=== PATIENT | female | born 1990 | race Caucasian/White ===

== ENCOUNTER → 2020-04-12 11:00 | Outpatient (BNVA) | payer MEDICAID, SELFPAY | PROVIDERS: Visit Provider Advanced Practice Midwife | DX: Z39.2 Encounter for routine postpartum follow-up (principal); F11.21 Opioid dependence, in remission | CPT/HCPCS: 99212 ==

== ENCOUNTER 2020-08-06 20:13 | Emergency (ER) | payer MEDICAID, SELFPAY ==
--- NOTE | ~2020-08-06 | XR_ITS ---
EXAMINATION: XR FOOT, LEFT CLINICAL INFORMATION: Trauma. Pain after hitting table. COMPARISON: None TECHNIQUE: AP, lateral, and oblique views of the left foot. FINDINGS: The bones and soft tissues are normal. No fracture. Alignment is anatomic. Joint spaces are maintained. XR/XR foot LT min 3V IMPRESSION: No acute fracture or dislocation.
[2020-08-06 21:20] VITALS: BP 109/63; PULSE 79; RESP 16; TEMP 36.7; O2SAT 96; BMI 27.4
--- NOTE | 2020-08-06 22:24 | ED_ITS ---
HPI - Extremity Injury (Lower) General Chief Complaint: Extremity Injury, Lower Stated Complaint: TOE INJ Time Seen by Provider: 08/06/20 21:12 Source: patient Mode of arrival: ambulatory Limitations: no limitations History of Present Illness HPI Narrative: Patient presents to ED for left foot pain. Patient states she hit her left foot on the table and since then has had pain on her last 3 toes. Patient denies any foot swelling, redness, numbness, weakness, tingling, or inability to walk. Patient denies falling to the ground or hitting head Related Data Home Medications Medication Instructions Recorded Confirmed vitamin with calcium 1 tab PO DAILY 04/12/20 04/12/20 no.72-iron 27 mg-folic acid 1 mg tablet Previous Rx's Medication Instructions Recorded PNV no.151-iron 27 mg-folic 800 1 cap PO DAILY 30 Days #30 cap 04/12/20 mcg-omega3 260 [id number] capsule naproxen 500 mg PO BID PRN #20 tab 08/06/20 Allergies Allergy/AdvReac Type Severity Reaction Status Date / Time hydrocodone [From VICODIN] Allergy Unknown ANAPHYLAXIS Verified 08/06/20 21:20 Vicodin Allergy Unknown anaphylaxis Uncoded 02/14/20 00:00 Review of Systems Review of Systems: Yes all other systems are reviewed and are negative Constitutional: Constitutional: Reports as per HPI and Reports no additional constitutional complaints Eyes: Eyes: Reports as per HPI and Reports no additional eye complaints ENT: Reports system reviewed and no additional complaints, except as documented and Reports as per HPI Cardiovascular: Cardiovascular: Reports as per HPI and Reports no additional cardiovascular complaints Respiratory: Respiratory: Reports as per HPI and Reports no additional r espiratory complaints Gastrointestinal: Gastrointestinal: Reports as per HPI and Reports no additi onal gastrointestinal complaints Genitourinary: Genitourinary: Reports no additional female genitourinary complaints and Reports as per HPI Musculoskeletal: Musculoskeletal: Reports no additional musculoskeletal complaints and Reports as per HPI Comments: Left-sided foot pain Neurologic: Reports system reviewed and no additional complaints, except as documented and Reports as per HPI Psychiatric: Psychiatric: Reports no additional psychiatric complaints and Reports as per HPI PMFSH Past Medical History Medical History Anxiety Depression Oxycodone use disorder, moderate, in early remission Family History Family History Paternal Grandfather Colon cancer Paternal Grandmother Breast cancer Social History Social History Alcohol intake: never Smoking Status: Current every day smoker Tobacco Type: Cigarette Cigarettes Per Day: 3 Use of substances other than those prescribed or required for medical reasons: No Advance Directives: No Gender identity: female Physical Exam Vital Signs: Vital Signs: Last Vital Signs Temp 98.1 F 08/06/20 21:20 Pulse 79 08/06/20 21:20 Resp 16 08/06/20 21:20 BP 109/63 08/06/20 21:20 Pulse Ox 96 08/06/20 21:20 Body Mass Index 27.4 Const: General: cooperative, healthy appearing, comfortable, no acute distress, well developed, alert and awake Orientation/consciousness: patient oriented x3 HENMT: Head: Yes normal to inspection, Yes No palpable skull fracture present, Yes normocephalic and Yes atraumatic Eyes: General: appearance normal, both eyes and all related structures Neck: Neck: Yes normal visual inspection, Yes full ROM, Yes no lymphadenopathy, Yes no meningeal signs, Yes trachea midline, Yes supple and No tender Chest: Chest palpation & inspection: normal inspection of the chest and normal palpation of entire chest wall Resp: Effort & Inspection: normal respiratory effort and able to speak in complete sentences Auscultation: clear to auscultation bilaterally Cardio: Jugular venous distension: no JVD Heart sounds: S1 normal heart sound present and S2 normal heart sound present GI: Inspection: Yes normal to inspection and No abdominal wall ecchymosis Palpation (GI): Soft to palpation, not firm, nontender, no guarding and not rigid : General: No CVA tenderness and Yes no CVA tenderness Back/Spine/Pelvis: Back: no CVA tenderness, No CVA tenderness and No back tenderness Skin: General skin exam: no rashes or lesions noted and elasticity normal Neuro: General: patient oriented x3, no meningeal signs and CN's II-XI intact bilaterally Cranial nerves: Yes CN's II-XII intact bilaterally Extrem: Other: Positive for tenderness on palpation of dorsal aspect of left foot, but negative for any obvious deformities, ecchymosis, swelling, redness, ulcers, pus discharge, or crepitus. Left ankle/leg/thigh/knee normal. Motor/neuro/vascular exam is intact. Right lower extremity normal and motor/nose/vascular exam is intact General: Yes normal to inspection and Yes full ROM Psych: Appearance: grossly normal, well kempt and not disheveled Course Course Course Narrative: Patient will be sent for left foot x-ray to rule out any fractures. Negative for any ankle tenderness. Reevaluation(s) Reevaluation #1: Left foot x-ray negative for any fractures. Patient given Motrin and placed in Chet wrap. History and physical exam does not indicate cellulitis, DVT, compartment syndrome, or arterial occlusion Time: 22:36 MDM - Extremity Injury (Lower) MDM Narrative Medical decision making narrative: Foot contusion Discharge Plan Discharge Clinical Impression: Contusion of foot Patient Disposition: Home, Self-Care Instructions: Foot Contusion (ED) Additional Instructions: Return to the ED for increased swelling, bluish discoloration of foot/toes, redness, swelling, calf pain, chest pain, shortness of breath, cold clammy skin, or any other concerning symptoms. Prescriptions: New naproxen 500 mg tablet 500 mg PO BID PRN (Reason: pain) Qty: 20 RF: 0 No Action Plus (calcium carb) 27 mg iron- 1 mg tablet 1 tab PO DAILY RF: 0 Multi-DHA(with vit K) 27 mg iron-800 mcg-260 mg capsule 1 cap PO DAILY 30 Days Qty: 30 RF: 6 Referrals: Susi Ibarra PA [Primary Care Provider] - 2 days (Left foot contusion) Stand Alone Forms: Work/School Release Interventions: ED Discharge Assessment Last Done: 08/06/20 23:22 Discharge Date/Time: 08/06/20 23:23 Print Language: Lao
[2020-08-06] MEDS: Ibuprofen 800 MG TABLET PO (22:37)
== END 2020-08-06 23:23 | disposition home or self-care (01) ==
PROVIDERS: Emergency Provider Internal Medicine; PCP Physician Assistant
DX: S90.32XA Contusion of left foot, initial encounter (principal); W22.03XA Walked into furniture, initial encounter; F11.20 Opioid dependence, uncomplicated; F17.210 Nicotine dependence, cigarettes, uncomplicated; Y93.89 Activity, other specified; Y92.019 Unspecified place in single-family (private) house as the place of occurrence of the external cause; Y99.9 Unspecified external cause status
CPT/HCPCS: 73630; 99283; 99284

== ENCOUNTER → 2020-12-22 08:54 | Outpatient (BNVA) | payer MEDICAID, SELFPAY | PROVIDERS: Visit Provider Advanced Practice Midwife | DX: Z32.01 Encounter for pregnancy test, result positive (principal) | CPT/HCPCS: 81025; 99212 ==

== ENCOUNTER 2020-12-29 10:36 | Outpatient (REF) | payer MEDICAID, SELFPAY ==
--- NOTE | ~2020-12-29 | US_ITS ---
EXAMINATION: FIRST TRIMESTER OB ULTRASOUND CLINICAL INFORMATION: Encounter for . Unknown LMP COMPARISON: None TECHNIQUE: Transabdominal and transvaginal pelvic ultrasound was performed. Transvaginal exam was performed for better visualization of the uterus and ovaries. FINDINGS: The uterus is anteverted. There is an intrauterine gestational sac and yolk sac. Mean sac diameter measures 0.8 cm suggesting gestational age of 5 weeks 3 days. There is a separate small hypoechoic area in the endometrium with thick echogenic wall measuring 1.5 x 1.3 x 1.3 cm. The endometrium is thickened measuring 2 cm. The cervix is normal appearing. The right ovary measures 3.6 x 2.5 x 2.3 cm and contains a 1.3 x 1.2 x 1.1 cm cyst. Left ovary is normal-appearing and measures 2.3 x 2 x 1.9 cm. There is a small amount of fluid in the pelvis. US/US OB pelvic and transvaginal IMPRESSION: Intrauterine gestational sac and yolk sac. Mean sac diameter suggests gestational age of 5 weeks 3 days. Separate small 1.5 x 1.3 x 1.3 cm hypoechoic area with thick echogenic wall in the endometrium.
== END 2020-12-29 10:37 | disposition home or self-care (01) ==
LOC: HO.US 10:36
PROVIDERS: Visit Provider Advanced Practice Midwife
DX: Z36.87 Encounter for antenatal screening for uncertain dates (principal)
CPT/HCPCS: 76801; 76817

== ENCOUNTER 2021-01-19 13:03 | Outpatient (REF) | payer MEDICAID, SELFPAY ==
--- NOTE | ~2021-01-19 | US_ITS ---
EXAMINATION: OBSTETRICAL ULTRASOUND, FIRST TRIMESTER HISTORY: 30-year-old at 8.5 weeks of gestation Viability LMP: Unknown COMPARISON: 12/29/2020 TECHNIQUE: Real time transabdominal imaging with color and M-mode Doppler. FINDINGS: A single, live IUP CRL of 20.0 mm c/w 8.3wks is noted. Heart Rate: 161 beats per minute. Both maternal ovaries are seen and appear normal. GESTATIONAL AGE: 1. GA from LMP: 8.5 wks 2. GA from AUA: 8.3 wks ESTIMATED DATE OF DELIVERY: 1. SHIRAZ from LMP: 08/26/2021 2. SHIRAZ from AUA: 08/28/2021 US/US OB <= 14 weeks fetus IMPRESSION: 1. A single live IUP 2. CRL consistent with 8.5 weeks of gestation confirming the SHIRAZ of 08/26/2021 Thank you very much for this referral. This note was generated with a voice recognition program. Please excuse any errors which may have been overlooked during my review of this note. Sometimes these errors may affect the content or meaning of a given sentence.
== END 2021-01-19 13:04 | disposition home or self-care (01) ==
LOC: HO.US 13:03
PROVIDERS: Visit Provider Advanced Practice Midwife
DX: Z34.91 Encounter for supervision of normal pregnancy, unspecified, first trimester (principal); Z36.9 Encounter for antenatal screening, unspecified
CPT/HCPCS: 76801

== ENCOUNTER → 2021-02-12 14:14 | Outpatient (BNVA) | payer MEDICAID, SELFPAY | PROVIDERS: Visit Provider Advanced Practice Midwife | DX: O99.341 Other mental disorders complicating pregnancy, first trimester (principal); F41.8 Other specified anxiety disorders; O99.321 Drug use complicating pregnancy, first trimester; F11.21 Opioid dependence, in remission; O99.331 Smoking (tobacco) complicating pregnancy, first trimester; Z3A.11 11 weeks gestation of pregnancy; Z88.8 Allergy status to other drugs, medicaments and biological substances | CPT/HCPCS: 99212 ==

== ENCOUNTER 2021-02-16 12:59 | Outpatient (REF) | payer MEDICAID, SELFPAY ==
--- NOTE | ~2021-02-16 | US_ITS ---
EXAMINATION: OBSTETRICAL ULTRASOUND, FIRST TRIMESTER HISTORY: 30-year-old at the 12.5 weeks of gestation NT screening COMPARISON: 01/19/2021 TECHNIQUE: Real time transabdominal imaging with color and M-mode Doppler. FINDINGS: A single, live IUP CRL of 60.8 mm c/w 12.4wks is noted. Heart Rate: 143 beats per minute. Normal yolk sac seen. NT was 1.3.mm. NB Present The embryo appears sonographically wnl for this GA. Both maternal ovaries are seen and appear normal. GESTATIONAL AGE: 1. Established GA: 12.5 wks 2. GA from AUA: 12.4 wks ESTIMATED DATE OF DELIVERY: 1. Established SHIRAZ: 08/26/2021 2. SHIRAZ from AUA: 08/27/2021 US/US OB 1T nuc measure IMPRESSION: 1. A single live IUP 2. Size equals dates 3. NT of 1.3 mm MFM Consultation: I reviewed the ultrasound findings along with significance of NT measurement. The NT of less than 3mm is generally reassuring. However, the sensitivity for T21 detection is only 60%. I reviewed the availability of serum aneuploidy screening which includes cell-free DNA and placental protein based tests. I discussed the sensitivity, false-positive rate, and other limitations associated with each test. I also reviewed the availability of invasive diagnostic tests that are associated small but definite risk of miscarriage. We also reviewed the differences between screening tests and diagnostic tests. After our discussion, she opted for the First trimester screening that is based on cell-free DNA or non-invasive testing (NIPT). Her first was complicated by placental abruption requiring emergent the delivery. She then had a full-term normal 2 years ago. The recurrence risk of placental abruption should not be increased. A follow up at 18 weeks for survey has been scheduled. Thank you very much for this referral. Total time 30 minutes. The time spent was devoted to counseling the patient about the disease and diagnosis, coordinating care including reviewing her records, pertinent lab data and studies, as well as discussing diagnostic evaluation and workup, plan therapeutic interventions and future disposition of care. This includes any additional research needed to obtain further information in formulating the plan of care of this patient. This note was generated with a voice recognition program. Please excuse any errors which may have been overlooked during my review of this note. Sometimes these errors may affect the content or meaning of a given sentence.
== END 2021-02-16 13:00 | disposition home or self-care (01) ==
LOC: HO.US 12:59
PROVIDERS: Visit Provider Advanced Practice Midwife
DX: Z36.82 Encounter for antenatal screening for nuchal translucency (principal)
CPT/HCPCS: 76813

== ENCOUNTER 2021-03-02 13:56 | Outpatient (REF) | payer MEDICAID, SELFPAY ==
[2021-03-03 00:58] LABS: CT PCR NOT DETECTED (Not Detect.); NG PCR NOT DETECTED (Not Detect.)
== END 2021-03-02 13:57 | disposition home or self-care (01) ==
LOC: HO.LAB 13:56
PROVIDERS: Visit Provider Advanced Practice Midwife
DX: Z34.82 Encounter for supervision of other normal pregnancy, second trimester (principal); Z3A.14 14 weeks gestation of pregnancy
CPT/HCPCS: 81003; 87491; 87591; 88142; 99212

== ENCOUNTER 2021-03-30 08:39 | Outpatient (REF) | payer MEDICAID, SELFPAY ==
--- NOTE | ~2021-03-30 | US_ITS ---
EXAMINATION: US OBSTETRICAL CLINICAL INFORMATION: A 30-year-old at 18.5 weeks of gestation Screening for anomaly COMPARISON: 02/16/2021 TECHNIQUE: Real-time transabdominal ultrasound was performed using C1-5 megahertz transducer. FINDINGS: A single, active, fetus is seen in vertex presentation. The placenta is anterior without previa, and the amniotic fluid volume is wnl. MEASUREMENTS: 1. Biparietal Diameter: 4.2 cm; 18.5 wks 2. Occipital Frontal Diameter: 5.4 cm 3. Head Circumference: 15.7 cm; 18.5 wks 4. Abdominal Circumference: 13.2 cm; 18.5 wks 5. Femur Length: 2.7 cm; 18.3 wks 6. Humerus Length: 2.73 cm; 18.5 wks 7. Tibia Length: 2.5 cm; 18.5 wks 8. Ulna Length: 2.4 cm; 18.3 wks 9. Lateral ventricle: 0.55 cm 10. Cerebellum: 1.79 cm; 18.5 wks 11. Cisterna Magna: 0.34 cm 12. Nuchal Fold: 3.4 mm 13. Heart Rate: 132 beats per minute Rt ovary: Unable to visualize Lt ovary: Unable to visualize Cervical length 3.9 cm on T/A. GESTATIONAL AGE: 1. Established GA: 18.5 wks 2. GA from AUA: 18.5 wks ESTIMATED DATE OF DELIVERY: 1. Established SHIRAZ: 08/26/2021 2. SHIRAZ from AUA: 08/26/2021 ANATOMY: The visualized anatomy includes but not limited to: 1. Cranium: Normal 2. Intracranial anatomy: cavum septum pellucidi, lateral ventricles, choroid plexus, cerebellum, posterior fossa, third and fourth ventricles. 3. face: orbits, lip/palate, profile, nasal bone 4. Heart: four-chamber view of the heart, ventricular septum, foramen ovale, pulmonary vein, left and right outflow tracts, three-vessel view, 3 vessel trachea view, aortic and ductal arches, situs.. 5. Diaphragm: Normal 6. Abdominal wall: Normal 7. Cord Insertion: Normal 8. Spine: Cervical, thoracic, lumbar, sacral. 9. Stomach: Normal size and shape 10. Right Kidney: Normal 11. Left Kidney: Normal 12. 3 vessel cord: Normal 13. Upper extremity: Open hands, fifth digit. 14. Lower extremity: Tibia, fibula, bilateral feet. 15. Bladder: Normal 16. Genitalia: Male, patient aware US/US OB /maternal detail IMPRESSION: 1. Single, living, intrauterine with appropriate biometry. 2. Normal survey DISCUSSION: I reviewed today's ultrasound findings. We discussed the limitations of ultrasound in diagnosing aneuploidy and other congenital abnormalities. I reviewed the differences between screening test and diagnostic test. Amniocentesis was discussed and declined. She was informed that the baseline incidence of congenital abnormalities is approximately 3-5%. Not all these conditions are diagnosable in utero. RECOMMENDATIONS: 1. Follow-up when necessary Thank you for allowing me to participate in her care. Total time 30 minutes. The time spent was devoted to counseling the patient about the disease and diagnosis, coordinating care including reviewing her records, pertinent lab data and studies, as well as discussing diagnostic evaluation and workup, plan therapeutic interventions and future disposition of care. This includes any additional research needed to obtain further information in formulating the plan of care of this patient. This note was generated with a voice recognition program. Please excuse any errors which may have been overlooked during my review of this note. Sometimes these errors may affect the content or meaning of a given sentence.
== END 2021-03-30 08:40 | disposition home or self-care (01) ==
LOC: HO.US 08:39
PROVIDERS: Visit Provider Advanced Practice Midwife
DX: Z34.92 Encounter for supervision of normal pregnancy, unspecified, second trimester (principal)
CPT/HCPCS: 76811